=== PATIENT | male | born 1985 | race African-American/Black ===

== ENCOUNTER 2018-08-25 01:01 | Emergency (ER) | payer SELFPAY ==
[~2018-08-25] VITALS: Ht 180.3 cm; Wt 84.0 kg
[2018-08-25] MEDS: ACETAMINOPHEN 500MG TABLET PO ONE (02:14)
[2018-08-25] MEDS: TETANUS, DIPHTHERIA, PERTUSSIS VAC/PF 0.5ML (>7YR OLD) IM ONE (02:14)
[2018-08-25] MEDS: CEPHALEXIN 250MG CAPSULE PO ONE (03:16)
[2018-08-25 03:38] VITALS: BP 152/74
== END 2018-08-25 03:38 | disposition home or self-care (01) ==
LOC: ER 01:01
DX: S81.801A Unspecified open wound, right lower leg, initial encounter (principal); V09.9XXA Pedestrian injured in unspecified transport accident, initial encounter; Y93.89 Activity, other specified; Y92.89 Other specified places as the place of occurrence of the external cause; Y99.8 Other external cause status
CPT/HCPCS: 90471; 90715; 99283; Z7610